=== PATIENT | male | born 2005 | race African-American/Black ===

== ENCOUNTER 2025-02-10 08:11 | Observation (INO) ==
[2025-02-10] MEDS: LORazepam 2 MG/1 ML VIAL ONE (08:23)
[2025-02-10] MEDS: LORazepam 2 MG/1 ML VIAL IV STA ×2 (08:23→09:23)
[2025-02-10] MEDS: SODIUM CHLORIDE 0.9% 1,000 ML IV ONE ×3 (08:52→14:03)
[2025-02-10 09:49] LABS: Albumin Globulin Ratio 1.5 (0.9-2); Albumin Level 4.6 gm/dl (3.4-5.0); BUN Creatinine Ratio 9.3 (10-20); Bilirubin,Total 0.4 mg/dl (0.2-1.0); Calcium 8.8 mg/dl (8.6-10.3); Creatinine Clr Calc Pharmacy 106.5 ml/min; Globulin 3.1 gm/dl (2.5-4.0); Potassium 2.9 mmol/L (3.5-5.1); Total Protein 7.7 gm/dl (6.0-8.3)
[2025-02-10 09:59] LABS: Basophils # (auto) 0.04 K/uL (0.00-0.20); Basophils % (auto) 0.6 %; Eosinophils # (auto) 0.03 K/uL (0.00-0.50); Eosinophils % (auto) 0.4 %; Hematocrit (blood only) 44.7 % (42.0-52.0); Hemoglobin 14.6 g/dl (14.0-18.0); Immature Granulocytes # (auto) 0.02 K/uL (0.01-0.20); Immature Granulocytes % (auto) 0.3 %; Lymphocytes % (auto) 49.9 %; Mean Corpuscular Hemoglobin 28.3 pg (25.0-34.0); Mean Corpuscular Hgb Conc 32.7 g/dL (32.0-36.0); Mean Corpuscular Volume 86.8 fL (80.0-100.0); Mean Platelet Volume 9.4 fL (9.4-12.4); Monocytes # (auto) 0.84 K/uL (0.11-0.59); Neutrophils # (auto) 2.58 K/uL (1.40-6.50); Neutrophils % (auto) 36.8 %; Platelet Count 523 K/uL (130-400); RDW Coefficient of Variation 13.2 % (11.5-14.5); RDW Standard Deviation 42.1 fL (36.4-46.3); Red Blood Count 5.15 M/uL (4.70-6.10); White Blood Count 7.01 K/ul (4.8-10.8)
[2025-02-10] MEDS: POTASSIUM CHLORIDE CRTAB 20 MEQ TABCR PO STA (10:26)
[2025-02-10] MEDS: MAGNESIUM SULFATE / D5W 1 GM/100 ML BAG IV STA (10:26)
--- NOTE | 2025-02-10 13:17 | History & Physical Report ---
Date of Service February 10, 2025 Assessment & Plan (1) Tachycardia: (2) Cocaine intoxication: (3) Alcohol intoxication: (4) Hypokalemia: Plan Alcohol intoxication Cocaine intoxication Tachycardia -Patient's tachycardia is most likely secondary to ingestion multiple substances such as alcohol, cocaine, and marijuana. -Received 2 L bolus of NSS in the ED. -Will give another liter bolus of NSS at time of admission. -Alcohol level of 93 in the ED. -EKG showed sinus tach at time of admission. -Troponin ordered at time of admission. Troponin negative. -Received Ativan 2 mg x 2 in the ED. Will hold off at this time and reevaluate after giving more fluids. Hypokalemia -2.9 in the ED. Given 40 p.o. in the ED. Will give 2 units IV KCl -Recheck in the a.m., monitor on telemetry. Nutrition: Regular Code status: full code DVT ppx: deferred, d/t low risk Dispo: PCU/telemetry, plan to DC tomorrow if stable. 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 Patient states that yesterday morning he started drinking around 11 AM and that in the afternoon/evening he had some marijuana as well as cocaine. States that he did not feel right and started to feel very lightheaded while walking so decided to come to the emergency room. Patient denies any chest pain, shortness of breath, cough, fever, or chills. Just feels very off and a little shaky. This has improved though with getting fluids and Ativan in the ED. Patient states he has not slept since yesterday and feeling lethargic. Denies any other issues or concerns at this time. Home Medications Medication Instructions Recorded Confirmed Type Probiotic 1 cap PO DAILY 02/10/25 02/10/25 History Vitamin C 1 tab PO BID 02/10/25 02/10/25 History Past Med/Surg History Problem List (Updated 02/10/25 @ 15:11 by German Noguera MD) Hypokalemia (Acute) Alcohol intoxication (Acute) Cocaine intoxication (Acute) Tachycardia (Acute) Social History Smoking Status: Never smoker Preferred Language: Belarusian Review of Systems Review of Systems: All systems reviewed & are unremarkable except as noted in Subjective Physical Exam Physical Exam: Constitutional: well-appearing, no acute distress HEENT: NCAT, no conjunctival injection, dry mucous membranes CV: Tachycardia, no murmur appreciated, extremities well-perfused, no LE edema Resp: CTABL, no wheezes/rales/rhonchi appreciated, no increased work of breathing GI: soft, nondistended, nontender, BS normoactive MSK: no gross deformities appreciated Skin: warm, dry, no rash appreciated Neuro: alert, oriented, no focal neurologic deficit appreciated Results & Data Results & Data Vital Signs (Past 12 Hours) Vital Signs Temp Pulse Pulse Resp BP BP Pulse Ox 02/10/25 12:39 127 H 02/10/25 12:01 100 H 22 109/58 L 96 02/10/25 10:44 123 H 18 149/87 H 96 02/10/25 10:33 135 H 39 H 02/10/25 10:18 133 H 26 H 96 02/10/25 10:14 132 H 18 149/87 H 97 02/10/25 10:03 137 H 36 H 97 02/10/25 10:00 149/87 H 02/10/25 10:00 149/87 H 02/10/25 09:48 141 H 43 H 98 02/10/25 09:42 127 H 32 H 96 02/10/25 09:30 149 H 38 H 98 02/10/25 09:12 137 H 14 97 02/10/25 09:00 133 H 26 H 96 02/10/25 09:00 133/69 02/10/25 09:00 133/69 02/10/25 09:00 133/69 02/10/25 09:00 133/69 02/10/25 09:00 133/69 02/10/25 09:00 133/69 02/10/25 09:00 133/69 02/10/25 09:00 133/69 02/10/25 09:00 133/69 02/10/25 09:00 133/69 02/10/25 09:00 133/69 02/10/25 09:00 133/69 02/10/25 09:00 133/69 02/10/25 09:00 133/69 02/10/25 09:00 133/69 02/10/25 09:00 133/69 02/10/25 09:00 133/69 02/10/25 09:00 133/69 02/10/25 09:00 133/69 02/10/25 09:00 133/69 02/10/25 08:54 136 H 15 94 02/10/25 08:45 138 H 41 H 97 02/10/25 08:30 139 H 14 97 02/10/25 08:21 145 H 11 L 95 02/10/25 08:14 18 94 02/10/25 08:14 02/10/25 08:13 143/84 H 02/10/25 08:13 143/84 H 02/10/25 08:13 143/84 H 02/10/25 08:13 143/84 H 02/10/25 08:13 143/84 H 02/10/25 08:13 143/84 H 02/10/25 08:13 143/84 H 02/10/25 08:13 143/84 H 02/10/25 08:13 143/84 H 02/10/25 08:13 143/84 H 02/10/25 08:13 143/84 H 02/10/25 08:13 143/84 H 02/10/25 08:13 143/84 H 02/10/25 08:13 143/84 H 02/10/25 08:13 143/84 H 02/10/25 08:13 143/84 H 02/10/25 08:13 143/84 H 02/10/25 08:06 36.6 C 158 H 18 143/84 H 98 O2 Del Method 02/10/25 12:39 02/10/25 12:01 Room Air 02/10/25 10:44 Room Air 02/10/25 10:33 02/10/25 10:18 02/10/25 10:14 Room Air 02/10/25 10:03 02/10/25 10:00 02/10/25 10:00 02/10/25 09:48 02/10/25 09:42 02/10/25 09:30 02/10/25 09:12 02/10/25 09:00 02/10/25 09:00 02/10/25 09:00 02/10/25 09:00 02/10/25 09:00 02/10/25 09:00 02/10/25 09:00 02/10/25 09:00 02/10/25 09:00 02/10/25 09:00 02/10/25 09:00 02/10/25 09:00 02/10/25 09:00 02/10/25 09:00 02/10/25 09:00 02/10/25 09:00 02/10/25 09:00 02/10/25 09:00 02/10/25 09:00 02/10/25 09:00 02/10/25 09:00 02/10/25 08:54 02/10/25 08:45 02/10/25 08:30 02/10/25 08:21 02/10/25 08:14 02/10/25 08:14 Room Air 02/10/25 08:13 02/10/25 08:13 02/10/25 08:13 02/10/25 08:13 02/10/25 08:13 02/10/25 08:13 02/10/25 08:13 02/10/25 08:13 02/10/25 08:13 02/10/25 08:13 02/10/25 08:13 02/10/25 08:13 02/10/25 08:13 02/10/25 08:13 02/10/25 08:13 02/10/25 08:13 02/10/25 08:13 02/10/25 08:06 Room Air Supervising Physician Co-Signing Physician Notes I personally examined the patient and verified all recinos points of history and exam, discussed case, and agree with decision making with Dr Jacobo Feeling okay, although somewhat groggy. Denies any focal complaints. Just does not feel well. Vitals noted, in general he is awake and alert does appear a bit groggy no physical distress. Breathing unlabored no accessory muscle use, cardio somewhat tachycardic. No focal neurodeficits. Skin without rashes pallor or icterus. Labs and diagnostics reviewed. Accidental polysubstance overdosealcohol, cocaine, marijuanaas needed benzodiazepines, supportive care. Follow EKGs and check troponin. Suspect he will do well. 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
--- NOTE | 2025-02-10 14:00 | Emergency Department Note ---
Impression & Plan Cocaine intoxication, Alcohol intoxication, Hypokalemia, Tachycardia ED Provider Note NAME: ERROL SCHRADER AGE: 19 SEX: M : 2005 ARRIVES VIA: Ambulance INFORMANT: Patient, ED PROVIDER(S): German Noguera MD CHIEF COMPLAINT: Cocaine use HPI: This is a 19-year-old male present for cocaine use. Patient states that he was drinking throughout the course of the night and used cocaine multiple times last night. He notes he is having anxiety feeling he is going to . He notes he took cocaine about 5 hours ago. He notes he still feels tachycardic with palpitations and doom sensation. He reports no chest pain. He has not used cocaine before. No nausea, vomiting. ROS: See above HPI for pertinent positives & negatives. A total of 10 systems reviewed and were otherwise negative. PAST MEDICAL HISTORY: See Below PAST SURGICAL HISTORY: See Below FAMILY HISTORY: See Below SOCIAL HISTORY: See Below HOME MEDICATIONS: See Below ALLERGIES: See Below VITALS: See Below PHYSICAL EXAMINATION: General: Anxious appearing Head: Normocephalic and atraumatic Eyes: Normal inspection, extraocular muscles intact Ear, nose, throat: Normal external exam Neck: Normal range of motion Respiratory: lungs clear to auscultation bilaterally Cardiovascular: Tachycardic regular rate/rhythm, no murmur GI: soft, nontender, no guarding or rebound Extremities: nontender, moves all extremities Neuro: The patient awake and alert, appropriately conversive, no focal deficits, symmetric faces Skin: Warm, dry, and intact MEDICAL DECISION MAKING: This is a 19-year-old male present for cocaine use. Patient is currently tachycardic with rate between 145 and 160. EKG is reviewed as below, nonischemic. Will give benzodiazepine for cocaine use. -Alcohol level is elevated at 93 -Patient does appear dehydrated from drinking and his drug use. Will give him IV resuscitation with fluids. Given 1 L initially. -Patient given 2 mg of IV Ativan initially. -Patient given IV magnesium as well as potassium orally due to his hypokalemia. -Patient still tachycardic, now with rates between 120 and 150. Will another 2 mg of IV Ativan and 1000 L normal saline -No signs of coronary vasospasm without chest pain or ST elevation/ischemic changes on 2 different EKGs -Patient has rested in his ER for approximately 5 hours. This is total 10 hours since he last used any cocaine. He still tachycardic between 125 and 140. -Due to present symptoms, kevin discuss for admission -Care discussed with Dr. Sharma. Differential diagnosis: Cocaine toxicity, alcohol withdrawal, polysubstance use disorder Diagnostics interpreted by me: ECG: ECG independently interpreted by me with sinus tachycardia rate of 159, normal LA, normal QRS, normal QTc, no ST segment elevations consistent with STEMI criteria -Second ECG independently interpreted by me with sinus tachycardia, rate of 139, normal axis, normal LA, normal QRS, normal QTc, no ST segment elevations consistent with STEMI criteria Cardiac Monitoring: An order was placed for continuous cardiac monitoring. The monitor shows a rate of 127 with sinus tachycardia rhythm. Past Med/Surg History Problem List (Updated 02/10/25 @ 15:11 by German Noguera MD) Hypokalemia (Acute) Alcohol intoxication (Acute) Cocaine intoxication (Acute) Tachycardia (Acute) Social History Smoking Status: Never smoker Preferred Language: Ukrainian Home Meds Home Medications Medication Instructions Recorded Confirmed Probiotic 1 cap PO DAILY 02/10/25 02/10/25 Vitamin C 1 tab PO BID 02/10/25 02/10/25 Results & Data (ED) Vital Signs Vital Signs - 24 hr 02/10/25 08:06 02/10/25 08:13 02/10/25 08:13 Temperature 36.6 C Temperature Source Temporal Artery Scan Pulse Rate 158 H Pulse Rate [Apical] Pulse Rate from SpO2 Sensor Pulse Rhythm [Apical] Pulse Strength [Apical] Respiratory Rate 18 Respiratory Effort / Characteristics Respiratory Depth Blood Pressure 143/84 H 143/84 H 143/84 H Blood Pressure [Left Arm] Blood Pressure Mean 103 105 105 Blood Pressure Mean [Left Arm] Blood Pressure Position [Left Arm] Pulse Oximetry 98 Oxygen Delivery Method Room Air Sepsis Recent Fever Within 48 Hours No Sepsis New/Unexplained Change in Mental Status N/A Sepsis Action Taken by Nursing No Action Required 02/10/25 08:13 02/10/25 08:13 02/10/25 08:13 Temperature Temperature Source Pulse Rate Pulse Rate [Apical] Pulse Rate from SpO2 Sensor Pulse Rhythm [Apical] Pulse Strength [Apical] Respiratory Rate Respiratory Effort / Characteristics Respiratory Depth Blood Pressure 143/84 H 143/84 H 143/84 H Blood Pressure [Left Arm] Blood Pressure Mean 105 105 105 Blood Pressure Mean [Left Arm] Blood Pressure Position [Left Arm] Pulse Oximetry Oxygen Delivery Method Sepsis Recent Fever Within 48 Hours Sepsis New/Unexplained Change in Mental Status Sepsis Action Taken by Nursing 02/10/25 08:13 02/10/25 08:13 02/10/25 08:13 Temperature Temperature Source Pulse Rate Pulse Rate [Apical] Pulse Rate from SpO2 Sensor Pulse Rhythm [Apical] Pulse Strength [Apical] Respiratory Rate Respiratory Effort / Characteristics Respiratory Depth Blood Pressure 143/84 H 143/84 H 143/84 H Blood Pressure [Left Arm] Blood Pressure Mean 105 105 105 Blood Pressure Mean [Left Arm] Blood Pressure Position [Left Arm] Pulse Oximetry Oxygen Delivery Method Sepsis Recent Fever Within 48 Hours Sepsis New/Unexplained Change in Mental Status Sepsis Action Taken by Nursing 02/10/25 08:13 02/10/25 08:13 02/10/25 08:13 Temperature Temperature Source Pulse Rate Pulse Rate [Apical] Pulse Rate from SpO2 Sensor Pulse Rhythm [Apical] Pulse Strength [Apical] Respiratory Rate Respiratory Effort / Characteristics Respiratory Depth Blood Pressure 143/84 H 143/84 H 143/84 H Blood Pressure [Left Arm] Blood Pressure Mean 105 105 105 Blood Pressure Mean [Left Arm] Blood Pressure Position [Left Arm] Pulse Oximetry Oxygen Delivery Method Sepsis Recent Fever Within 48 Hours Sepsis New/Unexplained Change in Mental Status Sepsis Action Taken by Nursing 02/10/25 08:13 02/10/25 08:13 02/10/25 08:13 Temperature Temperature Source Pulse Rate Pulse Rate [Apical] Pulse Rate from SpO2 Sensor Pulse Rhythm [Apical] Pulse Strength [Apical] Respiratory Rate Respiratory Effort / Characteristics Respiratory Depth Blood Pressure 143/84 H 143/84 H 143/84 H Blood Pressure [Left Arm] Blood Pressure Mean 105 105 105 Blood Pressure Mean [Left Arm] Blood Pressure Position [Left Arm] Pulse Oximetry Oxygen Delivery Method Sepsis Recent Fever Within 48 Hours Sepsis New/Unexplained Change in Mental Status Sepsis Action Taken by Nursing 02/10/25 08:13 02/10/25 08:13 02/10/25 08:13 Temperature Temperature Source Pulse Rate Pulse Rate [Apical] Pulse Rate from SpO2 Sensor Pulse Rhythm [Apical] Pulse Strength [Apical] Respiratory Rate Respiratory Effort / Characteristics Respiratory Depth Blood Pressure 143/84 H 143/84 H 143/84 H Blood Pressure [Left Arm] Blood Pressure Mean 105 105 105 Blood Pressure Mean [Left Arm] Blood Pressure Position [Left Arm] Pulse Oximetry Oxygen Delivery Method Sepsis Recent Fever Within 48 Hours Sepsis New/Unexplained Change in Mental Status Sepsis Action Taken by Nursing 02/10/25 08:14 02/10/25 08:14 02/10/25 08:21 Temperature Temperature Source Pulse Rate 145 H Pulse Rate [Apical] Pulse Rate from SpO2 Sensor 146 H Pulse Rhythm [Apical] Pulse Strength [Apical] Respiratory Rate 18 11 L Respiratory Effort / Characteristics Respiratory Depth Blood Pressure Blood Pressure [Left Arm] Blood Pressure Mean Blood Pressure Mean [Left Arm] Blood Pressure Position [Left Arm] Pulse Oximetry 94 95 Oxygen Delivery Method Room Air Sepsis Recent Fever Within 48 Hours Sepsis New/Unexplained Change in Mental Status Sepsis Action Taken by Nursing 02/10/25 08:30 02/10/25 08:45 02/10/25 08:54 Temperature Temperature Source Pulse Rate 139 H 138 H 136 H Pulse Rate [Apical] Pulse Rate from SpO2 Sensor 139 H 138 H 135 H Pulse Rhythm [Apical] Pulse Strength [Apical] Respiratory Rate 14 41 H 15 Respiratory Effort / Characteristics Respiratory Depth Blood Pressure Blood Pressure [Left Arm] Blood Pressure Mean Blood Pressure Mean [Left Arm] Blood Pressure Position [Left Arm] Pulse Oximetry 97 97 94 Oxygen Delivery Method Sepsis Recent Fever Within 48 Hours Sepsis New/Unexplained Change in Mental Status Sepsis Action Taken by Nursing 02/10/25 09:00 02/10/25 09:00 02/10/25 09:00 Temperature Temperature Source Pulse Rate Pulse Rate [Apical] Pulse Rate from SpO2 Sensor Pulse Rhythm [Apical] Pulse Strength [Apical] Respiratory Rate Respiratory Effort / Characteristics Respiratory Depth Blood Pressure 133/69 133/69 133/69 Blood Pressure [Left Arm] Blood Pressure Mean 85 85 85 Blood Pressure Mean [Left Arm] Blood Pressure Position [Left Arm] Pulse Oximetry Oxygen Delivery Method Sepsis Recent Fever Within 48 Hours Sepsis New/Unexplained Change in Mental Status Sepsis Action Taken by Nursing 02/10/25 09:00 02/10/25 09:00 02/10/25 09:00 Temperature Temperature Source Pulse Rate Pulse Rate [Apical] Pulse Rate from SpO2 Sensor Pulse Rhythm [Apical] Pulse Strength [Apical] Respiratory Rate Respiratory Effort / Characteristics Respiratory Depth Blood Pressure 133/69 133/69 133/69 Blood Pressure [Left Arm] Blood Pressure Mean 85 85 85 Blood Pressure Mean [Left Arm] Blood Pressure Position [Left Arm] Pulse Oximetry Oxygen Delivery Method Sepsis Recent Fever Within 48 Hours Sepsis New/Unexplained Change in Mental Status Sepsis Action Taken by Nursing 02/10/25 09:00 02/10/25 09:00 02/10/25 09:00 Temperature Temperature Source Pulse Rate Pulse Rate [Apical] Pulse Rate from SpO2 Sensor Pulse Rhythm [Apical] Pulse Strength [Apical] Respiratory Rate Respiratory Effort / Characteristics Respiratory Depth Blood Pressure 133/69 133/69 133/69 Blood Pressure [Left Arm] Blood Pressure Mean 85 85 85 Blood Pressure Mean [Left Arm] Blood Pressure Position [Left Arm] Pulse Oximetry Oxygen Delivery Method Sepsis Recent Fever Within 48 Hours Sepsis New/Unexplained Change in Mental Status Sepsis Action Taken by Nursing 02/10/25 09:00 02/10/25 09:00 02/10/25 09:00 Temperature Temperature Source Pulse Rate Pulse Rate [Apical] Pulse Rate from SpO2 Sensor Pulse Rhythm [Apical] Pulse Strength [Apical] Respiratory Rate Respiratory Effort / Characteristics Respiratory Depth Blood Pressure 133/69 133/69 133/69 Blood Pressure [Left Arm] Blood Pressure Mean 85 85 85 Blood Pressure Mean [Left Arm] Blood Pressure Position [Left Arm] Pulse Oximetry Oxygen Delivery Method Sepsis Recent Fever Within 48 Hours Sepsis New/Unexplained Change in Mental Status Sepsis Action Taken by Nursing 02/10/25 09:00 02/10/25 09:00 02/10/25 09:00 Temperature Temperature Source Pulse Rate Pulse Rate [Apical] Pulse Rate from SpO2 Sensor Pulse Rhythm [Apical] Pulse Strength [Apical] Respiratory Rate Respiratory Effort / Characteristics Respiratory Depth Blood Pressure 133/69 133/69 133/69 Blood Pressure [Left Arm] Blood Pressure Mean 85 85 85 Blood Pressure Mean [Left Arm] Blood Pressure Position [Left Arm] Pulse Oximetry Oxygen Delivery Method Sepsis Recent Fever Within 48 Hours Sepsis New/Unexplained Change in Mental Status Sepsis Action Taken by Nursing 02/10/25 09:00 02/10/25 09:00 02/10/25 09:00 Temperature Temperature Source Pulse Rate Pulse Rate [Apical] Pulse Rate from SpO2 Sensor Pulse Rhythm [Apical] Pulse Strength [Apical] Respiratory Rate Respiratory Effort / Characteristics Respiratory Depth Blood Pressure 133/69 133/69 133/69 Blood Pressure [Left Arm] Blood Pressure Mean 85 85 85 Blood Pressure Mean [Left Arm] Blood Pressure Position [Left Arm] Pulse Oximetry Oxygen Delivery Method Sepsis Recent Fever Within 48 Hours Sepsis New/Unexplained Change in Mental Status Sepsis Action Taken by Nursing 02/10/25 09:00 02/10/25 09:00 02/10/25 09:00 Temperature Temperature Source Pulse Rate 133 H Pulse Rate [Apical] Pulse Rate from SpO2 Sensor 133 H Pulse Rhythm [Apical] Pulse Strength [Apical] Respiratory Rate 26 H Respiratory Effort / Characteristics Respiratory Depth Blood Pressure 133/69 133/69 Blood Pressure [Left Arm] Blood Pressure Mean 85 85 Blood Pressure Mean [Left Arm] Blood Pressure Position [Left Arm] Pulse Oximetry 96 Oxygen Delivery Method Sepsis Recent Fever Within 48 Hours Sepsis New/Unexplained Change in Mental Status Sepsis Action Taken by Nursing 02/10/25 09:12 02/10/25 09:30 02/10/25 09:42 Temperature Temperature Source Pulse Rate 137 H 149 H 127 H Pulse Rate [Apical] Pulse Rate from SpO2 Sensor 137 H 150 H 126 H Pulse Rhythm [Apical] Pulse Strength [Apical] Respiratory Rate 14 38 H 32 H Respiratory Effort / Characteristics Respiratory Depth Blood Pressure Blood Pressure [Left Arm] Blood Pressure Mean Blood Pressure Mean [Left Arm] Blood Pressure Position [Left Arm] Pulse Oximetry 97 98 96 Oxygen Delivery Method Sepsis Recent Fever Within 48 Hours Sepsis New/Unexplained Change in Mental Status Sepsis Action Taken by Nursing 02/10/25 09:48 02/10/25 10:00 02/10/25 10:00 Temperature Temperature Source Pulse Rate 141 H Pulse Rate [Apical] Pulse Rate from SpO2 Sensor 140 H Pulse Rhythm [Apical] Pulse Strength [Apical] Respiratory Rate 43 H Respiratory Effort / Characteristics Respiratory Depth Blood Pressure 149/87 H 149/87 H Blood Pressure [Left Arm] Blood Pressure Mean 106 106 Blood Pressure Mean [Left Arm] Blood Pressure Position [Left Arm] Pulse Oximetry 98 Oxygen Delivery Method Sepsis Recent Fever Within 48 Hours Sepsis New/Unexplained Change in Mental Status Sepsis Action Taken by Nursing 02/10/25 10:03 02/10/25 10:14 02/10/25 10:18 Temperature Temperature Source Pulse Rate 137 H 133 H Pulse Rate [Apical] 132 H Pulse Rate from SpO2 Sensor 136 H 133 H Pulse Rhythm [Apical] Pulse Strength [Apical] Respiratory Rate 36 H 18 26 H Respiratory Effort / Characteristics Respiratory Depth Blood Pressure Blood Pressure [Left Arm] 149/87 H Blood Pressure Mean Blood Pressure Mean [Left Arm] 107 Blood Pressure Position [Left Arm] Pulse Oximetry 97 97 96 Oxygen Delivery Method Room Air Sepsis Recent Fever Within 48 Hours Sepsis New/Unexplained Change in Mental Status Sepsis Action Taken by Nursing 02/10/25 10:33 02/10/25 10:44 02/10/25 12:01 Temperature Temperature Source Pulse Rate 135 H Pulse Rate [Apical] 123 H 100 H Pulse Rate from SpO2 Sensor Pulse Rhythm [Apical] Regular Pulse Strength [Apical] Normal Respiratory Rate 39 H 18 22 Respiratory Effort / Characteristics Non-Labored Spontaneous Respiratory Depth Normal Blood Pressure Blood Pressure [Left Arm] 149/87 H 109/58 L Blood Pressure Mean Blood Pressure Mean [Left Arm] 107 75 Blood Pressure Position [Left Arm] Lying Pulse Oximetry 96 96 Oxygen Delivery Method Room Air Room Air Sepsis Recent Fever Within 48 Hours Sepsis New/Unexplained Change in Mental Status Sepsis Action Taken by Nursing 02/10/25 12:39 02/10/25 13:58 Temperature Temperature Source Pulse Rate 127 H Pulse Rate [Apical] 106 H Pulse Rate from SpO2 Sensor Pulse Rhythm [Apical] Pulse Strength [Apical] Respiratory Rate 22 Respiratory Effort / Characteristics Respiratory Depth Deep Blood Pressure Blood Pressure [Left Arm] 139/87 Blood Pressure Mean Blood Pressure Mean [Left Arm] 104 Blood Pressure Position [Left Arm] Pulse Oximetry 99 Oxygen Delivery Method Room Air Sepsis Recent Fever Within 48 Hours Sepsis New/Unexplained Change in Mental Status Sepsis Action Taken by Nursing Laboratory Data 02/10/25 08:15 02/10/25 08:15 Lab Results 02/10/25 02/10/25 Range/Units 08:15 14:03 WBC 7.01 (4.8-10.8) K/ul RBC 5.15 (4.70-6.10) M/uL Hgb 14.6 (14.0-18.0) g/dl Hct 44.7 (42.0-52.0) % MCV 86.8 (80.0-100.0) fL MCH 28.3 (25.0-34.0) pg MCHC 32.7 (32.0-36.0) g/dL RDW Std Deviation 42.1 (36.4-46.3) fL RDW Coeff of Alice 13.2 (11.5-14.5) % Plt Count 523 H (130-400) K/uL MPV 9.4 (9.4-12.4) fL Immature Gran % (Auto) 0.3 % Neut % (Auto) 36.8 % Lymph % (Auto) 49.9 % [place] % (Auto) 12.0 % Eos % (Auto) 0.4 % Baso % (Auto) 0.6 % Neut # (Auto) 2.58 (1.40-6.50) K/uL Lymph # (Auto) 3.50 H (1.20-3.40) K/uL [place] # (Auto) 0.84 H (0.11-0.59) K/uL Eos # (Auto) 0.03 (0.00-0.50) K/uL Baso # (Auto) 0.04 (0.00-0.20) K/uL Immature Gran # (Auto) 0.02 (0.01-0.20) K/uL Sodium 140 (136-145) mmol/L Potassium 2.9 L (3.5-5.1) mmol/L Chloride 102 (98-107) mmol/L Carbon Dioxide 23 (21-32) mmol/L Anion Gap 15 H (3-11) BUN 10 (6-23) mg/dl Creatinine 1.07 (0.6-1.4) mg/dl Est Cr Clr Drug Dosing 106.5 ml/min eGFR 101.88 BUN/Creatinine Ratio 9.3 L (10-20) Glucose 147 H (70-99(Fasting)) mg/dl Calcium 8.8 (8.6-10.3) mg/dl Magnesium Cancelled 2.0 Total Bilirubin 0.4 (0.2-1.0) mg/dl AST 31 (13-39) U/L ALT 25 (7-52) U/L Alkaline Phosphatase 90 (34-104) U/L Troponin I High Sens Cancelled 10.1 Total Protein 7.7 (6.0-8.3) gm/dl Albumin 4.6 (3.4-5.0) gm/dl Globulin 3.1 (2.5-4.0) gm/dl Albumin/Globulin Ratio 1.5 (0.9-2) Ethyl Alcohol mg/dL 93.1 H (<10.0) mg/dl Administered Medications Potassium Chloride (K Luis Miguel / Wtr) 10 meq in 100 mls @ 100 mls/hr IV Q1H TREVOR Stop: 02/10/25 15:29 Last Admin: 02/10/25 15:05 Dose: 100 mls/hr Documented By: Infusion: 02/10/25 15:03 Dose: Infused Documented By: Admin: 02/10/25 14:03 Dose: 100 mls/hr Documented By: BEHZAD Discontinued Medications Sodium Chloride (Nss) 1,000 mls @ 999 mls/hr IV .Q1H1M ONE Stop: 02/10/25 09:49 Last Infusion: 02/10/25 10:23 Dose: Infused Documented By: Admin: 02/10/25 09:23 Dose: 999 mls/hr Documented By: Infusion: 02/10/25 09:23 Dose: Infused Documented By: Admin: 02/10/25 08:52 Dose: 999 mls/hr Documented By: RANDALL Sodium Chloride (Nss) 1,000 mls @ 999 mls/hr IV .Q1H1M ONE Stop: 02/10/25 10:16 Last Infusion: 02/10/25 10:23 Dose: Infused Documented By: Admin: 02/10/25 09:23 Dose: 999 mls/hr Documented By: JOHN Magnesium Sulfate/Dextrose (Magnesium Sulfate / D5w) 1 gm in 100 mls @ 100 mls/hr IV NOW STA Stop: 02/10/25 10:53 Last Infusion: 02/10/25 11:27 Dose: Infused Documented By: Admin: 02/10/25 10:26 Dose: 100 mls/hr Documented By: RANDALL Sodium Chloride (Nss) 1,000 mls @ 999 mls/hr IV .Q1H1M ONE Stop: 02/10/25 14:17 Last Admin: 02/10/25 14:03 Dose: 999 mls/hr Documented By: BEHZAD Lorazepam (Lorazepam 2 Mg/1 Ml Vial) Confirm Administered Dose 2 mg .ROUTE .STK- MED ONE Stop: 02/10/25 08:23 Last Admin: 02/10/25 08:23 Dose: Not Given Documented By: RANDALL Lorazepam (Lorazepam 2 Mg/1 Ml Vial) 2 mg IV NOW STA Stop: 02/10/25 08:22 Last Admin: 02/10/25 08:23 Dose: 2 mg Documented By: RANDALL Lorazepam (Lorazepam 2 Mg/1 Ml Vial) 2 mg IV NOW STA Stop: 02/10/25 09:17 Last Admin: 02/10/25 09:23 Dose: 2 mg Documented By: JOHN Potassium Chloride (Potassium Chloride Crtab 20 Meq Tabcr) 40 meq PO NOW STA Stop: 02/10/25 09:55 Last Admin: 02/10/25 10:26 Dose: 40 meq Documented By: RANDALL Discharge Plan Visit Data Chief Complaint: Overdose (Intentional) Stated Complaint: INTOXICATED ED Provider: German Noguera Discharge Problem: Cocaine intoxication, Alcohol intoxication, Hypokalemia, Tachycardia Forms Stand Alone Forms: [facility], Suicide Prevention Resources Prescriptions Prescriptions: No Action Probiotic 1 cap PO DAILY Rx Instructions: OTC Vitamin C 1 tab PO BID Rx Instructions: OTC unknown dose Referrals Referrals: PCP,NO [Primary Care Provider] - Discharge Problem: Cocaine intoxication Qualifiers: Complication of substance-induced condition: with unspecified complication Q ualified Code(s): F14.929 - Cocaine use, unspecified with intoxication, unspecified Alcohol intoxication Qualifiers: Complication of substance-induced condition: uncomplicated Qualified Code(s): F 10.920 - Alcohol use, unspecified with intoxication, uncomplicated
[2025-02-10] MEDS: POTASSIUM CHLORIDE / WTR 10 MEQ/100 ML PLCT IV SCH (14:03)
[2025-02-10 14:44] LABS: Troponin I High Sensitivity 10.1 pg/ml (0-20)
--- NOTE | 2025-02-10 14:53 | Billing Data ---
Date of Service February 10, 2025 Coding Level of Care Code 17089 INT INP/OBS CARE
[2025-02-10] MEDS: ONDANSETRON INJ 2 MG/ML 2 ML VIAL IV PRN (23:56)
[2025-02-11 05:39] LABS: Basophils # (auto) 0.03 K/uL (0.00-0.20); Basophils % (auto) 0.4 %; Eosinophils # (auto) 0.06 K/uL (0.00-0.50); Eosinophils % (auto) 0.9 %; Hematocrit (blood only) 44.7 % (42.0-52.0); Hemoglobin 14.6 g/dl (14.0-18.0); Immature Granulocytes # (auto) 0.02 K/uL (0.01-0.20); Immature Granulocytes % (auto) 0.3 %; Lymphocytes # (auto) 2.21 K/uL (1.20-3.40); Lymphocytes % (auto) 31.3 %; Mean Corpuscular Hemoglobin 28.3 pg (25.0-34.0); Mean Corpuscular Hgb Conc 32.7 g/dL (32.0-36.0); Mean Corpuscular Volume 86.8 fL (80.0-100.0); Mean Platelet Volume 8.8 fL (9.4-12.4); Monocytes # (auto) 0.76 K/uL (0.11-0.59); Monocytes % (auto) 10.8 %; Neutrophils # (auto) 3.97 K/uL (1.40-6.50); Neutrophils % (auto) 56.3 %; Platelet Count 426 K/uL (130-400); RDW Coefficient of Variation 13.2 % (11.5-14.5); RDW Standard Deviation 41.5 fL (36.4-46.3); Red Blood Count 5.15 M/uL (4.70-6.10); White Blood Count 7.05 K/ul (4.8-10.8)
[2025-02-11 05:56] LABS: Albumin Globulin Ratio 1.3 (0.9-2); BUN Creatinine Ratio 6.7 (10-20); Bilirubin,Total 0.8 mg/dl (0.2-1.0); Creatinine Clr Calc Pharmacy 109.6 ml/min; Phosphorus 3.6 mg/dl (2.5-4.9); Potassium 4.6 mmol/L (3.5-5.1)
--- NOTE | 2025-02-11 08:17 | Electrocardiogram Report ---
Test Reason : Blood Pressure : */* mmHG Vent. Rate : 106 BPM Atrial Rate : 106 BPM P-R Int : 148 ms QRS Dur : 84 ms QT Int : 340 ms P-R-T Axes : 80 63 63 degrees QTcB Int : 451 ms Sinus tachycardia Otherwise normal ECG When compared with ECG of 10-Feb-2025 09:20, No significant change was found Confirmed by Demond Johnson ([id number]) on 02/11/2025 8:17:08 AM Referred By: REFERRED SELF Confirmed By: Demond Johnson
--- NOTE | 2025-02-11 08:18 | Electrocardiogram Report ---
Test Reason : Blood Pressure : */* mmHG Vent. Rate : 97 BPM Atrial Rate : 97 BPM P-R Int : 160 ms QRS Dur : 86 ms QT Int : 356 ms P-R-T Axes : 77 77 73 degrees QTcB Int : 452 ms Normal sinus rhythm Normal ECG When compared with ECG of 10-Feb-2025 15:22, No significant change was found Confirmed by Demond Johnson ([id number]) on 02/11/2025 8:17:28 AM Referred By: REFERRED SELF Confirmed By: Demond Johnson
--- NOTE | 2025-02-11 10:38 | Discharge Summary ---
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 Patient states that yesterday morning he started drinking around 11 AM and that in the afternoon/evening he had some marijuana as well as cocaine. States that he did not feel right and started to feel very lightheaded while walking so decided to come to the emergency room. Patient denies any chest pain, shortness of breath, cough, fever, or chills. Just feels very off and a little shaky. This has improved though with getting fluids and Ativan in the ED. Patient states he has not slept since yesterday and feeling lethargic. Denies any other issues or concerns at this time. Admission Exam Per Admitting Provider Constitutional: well-appearing, no acute distress HEENT: NCAT, no conjunctival injection, dry mucous membranes CV: Tachycardia, no murmur appreciated, extremities well-perfused, no LE edema Resp: CTABL, no wheezes/rales/rhonchi appreciated, no increased work of breathing GI: soft, nondistended, nontender, BS normoactive MSK: no gross deformities appreciated Skin: warm, dry, no rash appreciated Neuro: alert, oriented, no focal neurologic deficit appreciated Principal Diagnosis alcohol and cocaine intoxication Discharge Exam No physical exam performed as pt left AMA overnight. Discharge Data Consultations 02/10/25 13:11 ED Decision to Admit Stat Hospital Course (1) Tachycardia: (2) Cocaine intoxication: (3) Alcohol intoxication: (4) Hypokalemia: Plan Pt is a 19 yo male admitted to the hospital d/t alcohol and cocaine intoxication. Pt left AMA overnight so no further evaluation performed this AM. Admission plan as below. Alcohol intoxication Cocaine intoxication Tachycardia -Patient's tachycardia is most likely secondary to ingestion multiple substances such as alcohol, cocaine, and marijuana. -Received 2 L bolus of NSS in the ED. -Will give another liter bolus of NSS at time of admission. -Alcohol level of 93 in the ED. -EKG showed sinus tach at time of admission. -Troponin ordered at time of admission. Troponin negative. -Received Ativan 2 mg x 2 in the ED. Will hold off at this time and reevaluate after giving more fluids. Hypokalemia -2.9 in the ED. Given 40 p.o. in the ED. Will give 2 units IV KCl on admission -AM K WNL Nutrition: Regular Code status: full code DVT ppx: deferred, d/t low risk Dispo: PCU/telemetry, plan to DC tomorrow if stable. Total Time Total Time Spent Total Time Spent (In Minutes): as per attending attestation Discharge Plan Discharge Items Patient Disposition: Against Medical Advice Reason For Visit: COCAINE TOXICITY, TACHYCARDIA Activity: Resume your previous activity Non-emergency contact: Primary Care Provider Follow-up/Referrals: PCP,NO [Primary Care Provider] - Pending Studies at Discharge: No Stand-Alone Forms: [employer], Smoking Cessation Medications and DC Order Prescriptions: Continued Probiotic 1 cap PO DAILY Rx Instructions: OTC Vitamin C 1 tab PO BID Rx Instructions: OTC unknown dose Discharge Orders: Left Against Medical Advice (Routine); Ordered 02/11/25 Ordered By: Megan Hi Admission Data Admit Date/Time: 02/10/25 13:23 Attending Provider: Karmen Shields Admit Provider: Aki Jacobo Primary Care Provider: PCP,NO Other Providers: Aung Sharma Supervising Physician Co-Signing Physician Notes I agree with documentation of Dr. Quintanilla. Patient left hospital AMA prior to evaluation by hospital medicine team. Patient admitted following reported intoxication with EtOH, cannabis, and cocaine. EtOH 93.1 on admission. Vital signs with BP 125/56, HR 63, RR 16, temp 36.5 and oxygen saturation 98% on room air at last evaluation 3:14 AM. AM. labs reviewed which showed mild thrombocytosis at 426, electrolytes in normal range, kidney and liver function stable. Total attending time 12 minutes. Resident Activity Tracking Resident Involvement: Resident Care Provided Care Provided: Adult Hospital Medicine
--- NOTE | 2025-02-11 13:01 | Electrocardiogram Report ---
Test Reason : Blood Pressure : */* mmHG Vent. Rate : 91 BPM Atrial Rate : 91 BPM P-R Int : 160 ms QRS Dur : 86 ms QT Int : 360 ms P-R-T Axes : 70 70 63 degrees QTcB Int : 442 ms Normal sinus rhythm with sinus arrhythmia Normal ECG When compared with ECG of 10-Feb-2025 17:14, No significant change was found Confirmed by Demond Johnson ([id number]) on 02/11/2025 1:00:48 PM Referred By: REFERRED SELF Confirmed By: Demond Johnson
--- NOTE | 2025-02-11 14:04 | Electrocardiogram Report ---
Test Reason : Blood Pressure : */* mmHG Vent. Rate : 102 BPM Atrial Rate : 102 BPM P-R Int : 158 ms QRS Dur : 84 ms QT Int : 338 ms P-R-T Axes : 66 61 57 degrees QTcB Int : 440 ms Sinus tachycardia Otherwise normal ECG When compared with ECG of 10-Feb-2025 13:58, No significant change was found Confirmed by Demond Johnson ([id number]) on 02/11/2025 2:04:41 PM Referred By: REFERRED SELF Confirmed By: Demond Johnson
--- NOTE | 2025-02-11 14:04 | Electrocardiogram Report ---
Test Reason : Blood Pressure : */* mmHG Vent. Rate : 139 BPM Atrial Rate : 139 BPM P-R Int : 144 ms QRS Dur : 88 ms QT Int : 362 ms P-R-T Axes : 72 46 54 degrees QTcB Int : 550 ms Sinus tachycardia Otherwise normal ECG When compared with ECG of 10-Feb-2025 08:15, HR has decreased by 20 bpm Otherwise no significant change Confirmed by Demond Johnson ([id number]) on 02/11/2025 2:04:31 PM Referred By: REFERRED SELF Confirmed By: Demond Johnson
--- NOTE | 2025-02-11 14:04 | Electrocardiogram Report ---
Test Reason : Blood Pressure : */* mmHG Vent. Rate : 159 BPM Atrial Rate : 159 BPM P-R Int : 144 ms QRS Dur : 86 ms QT Int : 220 ms P-R-T Axes : 71 31 64 degrees QTcB Int : 357 ms Sinus tachycardia Abnormal ECG No previous ECGs available Confirmed by Demond Johnson ([id number]) on 02/11/2025 2:04:13 PM Referred By: REFERRED SELF Confirmed By: Demond Johnson
== END 2025-02-11 07:00 | disposition left against medical advice (07) | DRG 894 ==
LOC: ED 08:11 → SUATTDRO 13:23 → EDINP 13:23 → INTOOBSV 13:23 → 2S 16:15